=== PATIENT | female | born 1990 | race African-American/Black ===

== ENCOUNTER 2024-02-16 05:09 | Emergency (ER) | payer BC ==
[~2024-02-16] VITALS: Ht 165.1 cm; Wt 68.0 kg
[2024-02-16 05:15] VITALS: TEMP 98.1
[2024-02-16 06:35] LABS: HEMOGLOBIN 12.9 g/dL (12.0-16.0); LYMPHOCYTES # (AUTO) 1.4 K/uL (1.0-4.8); MONOCYTES # (AUTO) 0.5 K/uL (0.1-1.0); WHITE BLOOD COUNT (AUTO) 3.7 K/uL (4.5-11.0)
[2024-02-16 06:40] LABS: EOSINOPHILS % (AUTO) 0.8 % (1.0-6.0); HEMATOCRIT 38.1 % (36-46); LYMPHOCYTES % (AUTO) 38.2 % (22.0-44.0); MEAN CORPUSCULAR HEMOGLOBIN 29.4 pg (26.0-34.0); MEAN CORPUSCULAR HGB CONC 33.9 G/dL (31.0-37.0); MEAN CORPUSCULAR VOLUME 87 fL (80-100); MONOCYTES % (AUTO) 13.3 % (2.0-9.0); NEUTROPHILS # (AUTO) 1.7 K/uL (1.8-7.7); NEUTROPHILS % (AUTO) 46.7 % (40.0-70.0); PLATELET COUNT (AUTO) 218 K/uL (150-450); RED BLOOD CELL COUNT(AUTO) 4.38 MIL/uL (4.00-5.20); RED CELL DISTRIBUTION WIDTH 13.1 % (11.5-14.5)
[2024-02-16 06:55] LABS: ANION GAP 7 mmol/L (8-16); CALCIUM, TOTAL 9.3 mg/dL (8.8-10.5); CARBON DIOXIDE 27 mmol/L (22-29); CHLORIDE 105 mmol/L (98-107); CREATININE 0.65 mg/dL (0.60-1.30); GLOMERULAR FILTR. RATE CALC > 60 mL/min (>60); GLUCOSE,RANDOM 104 mg/dL (70-110); POTASSIUM 4.3 mmol/L (3.5-5.1); SODIUM SERUM 139 mmol/L (136-145); UREA NITROGEN, BLOOD 9 mg/dL (7-18)
[2024-02-16 07:01] LABS: ALANINE AMINOTRANSFERASE 30 U/L (12-78); ALBUMIN 3.7 g/dL (3.4-5.0); ALKALINE PHOSPHATASE 67 U/L (46-116); ASPARTATE AMINOTRANSFERASE 28 U/L (15-37); BILIRUBIN,TOTAL 0.4 mg/dL (0.1-1.0); LIPASE 72 U/L (16-77); TOTAL PROTEIN, SERUM 8.1 g/dL (6.4-8.2)
[2024-02-16 07:02] LABS: TROPONIN I-HIGH SENSITIVITY 6 ng/L (<51)
[2024-02-16] MEDS ORDERED: ACET-66 PO (07:22)
[2024-02-16] MEDS ORDERED: METH-659 PO (07:22)
[2024-02-16 07:30] VITALS: BP 123/82; PULSE 80; RESP 14
[2024-02-16] MEDS: METHOCARBAMOL 500 MG TABLET PO ONE (07:32)
[2024-02-16] MEDS: ACETAMINOPHEN 500 MG TABLET PO ONE (07:33)
== END 2024-02-16 07:42 | disposition home or self-care (01) ==
LOC: EMS 05:10
DX: R07.89 Other chest pain (principal); F41.9 Anxiety disorder, unspecified; Z88.2 Allergy status to sulfonamides; Z82.49 Family history of ischemic heart disease and other diseases of the circulatory system
CPT/HCPCS: 80048; 80076; 83690; 84484; 85025; 93005; 99284

== ENCOUNTER → 2024-05-22 | Outpatient (CLI) | payer OTHER ==
[~2024-05-22] MED LIST: ACET-66 PO; METH-659 PO
== END | disposition home or self-care (01) ==
LOC: RADMN 10:50
PROVIDERS: ATTEND Otolaryngology
DX: J32.8 Other chronic sinusitis (principal)
CPT/HCPCS: 70486

== ENCOUNTER 2024-10-22 18:57 | Emergency (ER) | payer OTHER ==
[~2024-10-22] VITALS: Ht 165.1 cm; Wt 63.6 kg
[2024-10-22 19:22] VITALS: TEMP 98.3
[2024-10-22 20:17] VITALS: BP 127/88; PULSE 79; RESP 20; O2SAT 100
[2024-10-22] MEDS ORDERED: HYDR-4062 PO (20:17)
[2024-10-22] MEDS ORDERED: [UNRECOGNIZED DRUG - CODE] PO (20:21)
[2024-10-22] MEDS ORDERED: RIZA10TA42 PO (20:21)
[2024-10-22] MEDS ORDERED: VENL-67 PO (20:21)
[2024-10-22] MEDS: HYDROCODONE/ACETAMINOPHEN 5-325 MG TABLET PO ONE (20:28)
== END 2024-10-22 21:02 | disposition home or self-care (01) ==
LOC: EMS 18:57
DX: S00.83XA Contusion of other part of head, initial encounter (principal); Z88.2 Allergy status to sulfonamides; Y04.0XXA Assault by unarmed brawl or fight, initial encounter; Y93.89 Activity, other specified; Y92.89 Other specified places as the place of occurrence of the external cause; Y99.8 Other external cause status
CPT/HCPCS: 99283